=== PATIENT | female | born 1945 | race Caucasian/White ===

== ENCOUNTER 2019-10-23 18:26 | Emergency (ER) | payer MEDICARE, OTHER ==
[~2019-10-23] VITALS: Ht 157.5 cm; Wt 61.2 kg
--- NOTE | 2019-10-23 19:20 | NUR ---
ASSUMED CARE FOR THIS PATIENT.
--- NOTE | 2019-10-23 19:21 | NUR ---
PT CAME TO THE ED C/O GLF TODAY. POSTERIOR LAC NOTED. PT HAD NO MEDICAL COMPLAINTS AT THIS TIME. PT DENIES ANY PAIN. PT AAOX4, VSS, RESPIRATIONS EVEN AND UNLABORED ON RA W/ NAD NOTED. PT CONNECTED TO THE MONITOR AND POX
[2019-10-23] MEDS ORDERED: TDAP [DIPH/PERTUSSIS/TET] 0.5 ML VIAL IM ONE ×2 (20:30→20:34)
[2019-10-23] MEDS ORDERED: ACETAMINOPHEN 325 MG TABLET PO ONE (20:30)
[2019-10-23] MEDS ORDERED: ACETAMINOPHEN 325 MG TABLET ONE (20:34)
--- NOTE | 2019-10-23 20:49 | NUR ---
Patient discharged to home in stable condition. Written and verbal after care instructions given. Patient verbalizes understanding of instruction.ambulatory with a steady gait
[2019-10-23 20:50] VITALS: BP 128/87
== END 2019-10-23 20:51 | disposition home or self-care (01) ==
LOC: ER 18:30
DX: S22.31XA Fracture of one rib, right side, initial encounter for closed fracture (principal); S00.03XA Contusion of scalp, initial encounter; R51 Headache; E11.9 Type 2 diabetes mellitus without complications; Z98.890 Other specified postprocedural states; Z90.49 Acquired absence of other specified parts of digestive tract; Z88.2 Allergy status to sulfonamides; W01.0XXA Fall on same level from slipping, tripping and stumbling without subsequent striking against object, initial encounter; Y93.89 Activity, other specified; Y92.89 Other specified places as the place of occurrence of the external cause; Y99.8 Other external cause status
CPT/HCPCS: 70450-TC; 71100-TC; 72125-TC; 90715